=== PATIENT | female | born 1985 | race Caucasian/White ===

== ENCOUNTER 2018-02-11 13:38 | Emergency (ER) | payer OTHER, MEDICAID ==
[~2018-02-11] VITALS: Ht 160 cm; Wt 168.3 kg
[~2018-02-11 13:38] MED LIST: 3-DAY VAGINAL C21 GM VG; AMOXICILLIN 50500 M1 PO; AMOXICILLIN 50500 MG PO; AMOXICILLIN500 M1 PO; AMOXICILLIN875 MG PO; ATIVAN0.5 MG PO; ATROVENT15 ML NS; BACTRIM DS TAB1 EACH PO; BACTROBAN15 GM TP; CIPROFLOXACIN500 M1 PO; COLACE100 MG PO; DEPO-PROVER150 MG/M1 IM; DIFLUCAN150 M1 PO; DIFLUCAN150 MG PO; FLEXERIL PO; FLONASE 0.05%50 MCG NASAL; HYDROCODON-ACE1 EAC7 PO; HYDROCODONE-AP1 EAC6 PO; HYDROCODONE-APA1 TA1 PO; IBUPROFEN 800800 M1 PO; IRON325 PO; MACROBID 100 M100 M1 PO; MULTIVITAMINS1 EAC7; NAPROXEN DELAY500 M1 PO; NOHOMEMEDICATIONS; NORCO 5-325 TA1 EACH PO; NYSTATIN15 GM TP; PAXIL10 MG; PREDNISONE 10 M10 M1 PO; PREDNISONE 20 M20 M1 PO; PRENATABS RX T1 EACH PO; PRENATAL; PROZAC 20 MG20 M1 PO; PYRIDIUM200 MG PO; TRINATE TABLET1 TAB PO; ULTRAM 50MG TAB50 MG PO; VENTOLIN HFA 1818 GM INH; VENTOLIN17 GM INH; ZOFRAN ODT4 MG PO; ZOFRAN4 MG PO; ZPAK PO; ZYRTEC 10 MG TA10 MG PO
[2018-02-11] MEDS ORDERED: WELLBUTRIN 100100 MG PO (13:43)
[2018-02-11 14:23] LABS: ABSOLUTE BASOPHILS 0.1 thou/uL (0.0-0.2); ABSOLUTE LYMPHOCYTES 1.6 thou/uL (0.8-5.3); ABSOLUTE MONOCYTES 0.8 thou/uL (0.0-1.2); ABSOLUTE NEUTROPHILS 8.9 thou/uL (1.6-8.1); BASOPHILS 0.6 %; EOSINOPHILS 0.4 %; HEMOGLOBIN 13.7 gm/dL (12.0-15.0); LYMPHOCYTES 13.7 %; MCH 27.3 pg (26.0-34.0); MCHC 33.4 g/dL (28.0-37.0); MCV 81.7 fL (80.0-100.0); MONOCYTES 6.6 %; MPV 7.7 fl. (7.2-11.1); NUCLEATED RBCS 0 /100WBC; PLATELET COUNT* 305 thou/uL (150-400); POLYS 78.7 %; RBC 5.02 mil/uL (4.20-5.00); WBC 11.4 thou/uL (4.0-11.0)
[2018-02-11 14:31] LABS: ANION GAP 9 mmol/L (7-16); BUN 8 mg/dL (7-18); CALCIUM 9.1 mg/dL (8.5-10.1); CHLORIDE 100 mmol/L (98-107); CO2 27 mmol/L (21-32); CREATININE 0.7 mg/dL (0.6-1.3); GLUCOSE 90 mg/dL (70-99); POTASSIUM 3.5 mmol/L (3.5-5.1); SODIUM 136 mmol/L (136-145)
[2018-02-11 14:39] LABS: ALBUMIN 3.8 g/dL (3.4-5.0); ALKALINE PHOSPHATASE 58 U/L (46-116); LIPASE 60 U/L (73-393); SGOT 17 U/L (15-37); SGPT 31 U/L (30-65); TOTAL BILIRUBIN 0.5 mg/dL (<0.1-1.0); TOTAL PROTEIN 7.6 g/dL (6.4-8.2); TROPONIN-I LEVEL <0.06 ng/mL (<0.06)
[2018-02-11] MEDS ORDERED: PEPCID AC20 MG PO (15:01)
[2018-02-11] MEDS ORDERED: VISTARIL 25 MG25 M1 PO (15:01)
[2018-02-11 15:17] VITALS: BP 131/74
[2018-02-11 15:18] LABS: URINE BILIRUBIN NEGATIVE (Negative); URINE BLOOD 3+ (Negative); URINE CLARITY CLEAR; URINE COLOR YELLOW; URINE GLUCOSE-RANDOM NEGATIVE (Negative); URINE KETONES 2+ (Negative); URINE LEUKOCYTES-REFLEX TRACE (Negative); URINE NITRITE-REFLEX NEGATIVE (Negative); URINE PROTEIN NEGATIVE (Negative); URINE UROBILINOGEN 0.2 E.U./dl (0.2-1.0)
[2018-02-11 15:31] LABS: AMP/METHAMP Negative (Negative); BARBITURATES Negative (Negative); BENZODIAZEPINES Negative (Negative); COCAINE Negative (Negative); METHADONE Negative (Negative); OPIATES Negative (Negative); PCP Negative (Negative); THC Negative (Negative)
[2018-02-11 15:49] LABS: MUCUS 0-3 Light strn/LPF (None Seen); SQUAMOUS >10 Many /LPF (0-3)
[2018-02-11 15:50] LABS: BACTERIA-REFLEX 1-9 Few /HPF (None Seen); CASTS None Seen /LPF (None Seen); CRYSTALS None Seen /LPF (None Seen); URINE RBC >20 Many /HPF (0-2); URINE WBC-REFLEX 0-5 Rare /HPF (0-5)
--- NOTE | 2018-02-12 13:28 | EKG ---
[place] [address] ELECTROCARDIOGRAM REPORT Name: YURIDIA MICHAELS Room: [facility]#: [id number] Admission: 02/11/18 Attend Phys: Discharge: 02/11/18 Date of : 87 Report #: [id number] THIS REPORT FOR: //name// [facility] ED Test Date: 2018-02-11 Test Time: 13:45:47 Pat Name: YURIDIA MICHAELS Department: Room: Gender: F Want Ad Clerk: DENEEN : 1985 Requested By: Taylor Guzman Order Number: [id number] MD: Charles Fong Measurements Intervals [place] Rate: 104 P: 20 OK: 176 QRS: 4 QRSD: 108 T: 56 QT: 335 QTc: 441 Interpretive Statements Sinus tachycardia No previous ECG available for comparison Electronically Signed On 02-12-2018 13:27:50 CDT by Charles Fong [email or web address] <ELECTRONICALLY SIGNED> By: Hmuza Fong MD, [facility] 02/12/18 1327 1345 1345 Humza Fong MD, FACC /EPI
== END 2018-02-11 15:18 | disposition home or self-care (01) ==
LOC: M.ERS 13:38
PROVIDERS: Physician Assistant
DX: K21.9 Gastro-esophageal reflux disease without esophagitis (principal); F41.9 Anxiety disorder, unspecified

== ENCOUNTER 2018-05-04 00:23 | Emergency (ER) | payer OTHER, MEDICAID ==
[~2018-05-04] VITALS: Ht 160 cm; Wt 160.6 kg
[~2018-05-04 00:23] MED LIST changes: +PEPCID AC20 MG PO; +VISTARIL 25 MG25 M1 PO; +WELLBUTRIN 100100 MG PO
[2018-05-04 00:36] VITALS: BP 173/98
[2018-05-04] MEDS ORDERED: ERYTHROMYCIN E3.5 G2 OPHTHALMIC (00:57)
== END 2018-05-04 01:10 | disposition home or self-care (01) ==
LOC: M.ERS 00:23
DX: H01.004 Unspecified blepharitis left upper eyelid (principal); H00.024 Hordeolum internum left upper eyelid

== ENCOUNTER 2019-01-08 03:13 | Emergency (ER) | payer OTHER ==
[~2019-01-08] VITALS: Ht 160 cm; Wt 154.7 kg
[~2019-01-08 03:13] MED LIST changes: +ERYTHROMYCIN E3.5 G2 OPHTHALMIC
[2019-01-08] MEDS ORDERED: TESSALON PERLE100 MG PO (03:24)
[2019-01-08] MEDS ORDERED: FLONASE 0.05%50 MCG NASAL (03:24)
[2019-01-08] MEDS ORDERED: PHENTERMINE H37.5 MG PO (03:24)
[2019-01-08] MEDS ORDERED: AMOXIL 875 MG875 M1 PO (04:05)
[2019-01-08] MEDS ORDERED: PREDNISONE50 MG PO (04:05)
[2019-01-08 04:12] VITALS: BP 131/60
== END 2019-01-08 04:12 | disposition home or self-care (01) ==
LOC: M.ERS 03:13
DX: J06.9 Acute upper respiratory infection, unspecified (principal)

== ENCOUNTER 2021-09-23 09:11 | Emergency (ER) | payer BC ==
[~2021-09-23] VITALS: Ht 160 cm; Wt 152.4 kg
[~2021-09-23 09:11] MED LIST changes: +AMOXIL 875 MG875 M1 PO; +PHENTERMINE H37.5 MG PO; +PREDNISONE50 MG PO; +TESSALON PERLE100 MG PO
[2021-09-23] MEDS ORDERED: URSODIOL250 MG PO (09:27)
[2021-09-23] MEDS ORDERED: VITAMIN D-40010 MCG PO (09:27)
[2021-09-23] MEDS ORDERED: OMEPRAZOLE 20 M20 M1 PO (09:27)
[2021-09-23] MEDS ORDERED: SUPER THERAVIT1 EACH PO (09:28)
[2021-09-23] MEDS ORDERED: CALCIUM500 MG PO (09:28)
[2021-09-23] MEDS ORDERED: EFFER-K 10 MEQ10 ME1 PO (09:28)
[2021-09-23 10:01] LABS: CREATININE 0.5 mg/dL (0.6-1.3); POTASSIUM 3.4 mmol/L (3.5-5.1)
[2021-09-23 10:35] LABS: URINE BILIRUBIN NEGATIVE (Negative); URINE BLOOD NEGATIVE (Negative); URINE CLARITY CLEAR; URINE COLOR YELLOW; URINE GLUCOSE-RANDOM NEGATIVE (Negative); URINE LEUKOCYTES TRACE (Negative); URINE NITRITE NEGATIVE (Negative); URINE PROTEIN NEGATIVE (Negative); URINE SPECIFIC GRAVITY 1.025 (1.005-1.030); URINE UROBILINOGEN 0.2 E.U./dl (0.2-1.0)
[2021-09-23 10:36] LABS: URINE KETONES 3+ (Negative)
[2021-09-23 10:41] LABS: URINE REDUCING SUBSTANCE NEGATIVE (Negative)
[2021-09-23] MEDS ORDERED: AUGMENTIN 875-1 EACH PO (10:53)
[2021-09-23 11:11] VITALS: BP 139/77
== END 2021-09-23 11:12 | disposition home or self-care (01) ==
LOC: M.ERS 09:11
PROVIDERS: Emergency Medicine Emergency Medical Services
DX: N39.0 Urinary tract infection, site not specified (principal); R33.9 Retention of urine, unspecified; E86.0 Dehydration; Z98.84 Bariatric surgery status; Z79.899 Other long term (current) drug therapy